=== PATIENT | male | born 1940 | race American Indian/Alaskan Native ===

== ENCOUNTER 2023-01-19 15:45 | Emergency (ER) | payer BC, MEDICARE ==
[2023-01-19 15:50] VITALS: BP 144/71; PULSE 101
[2023-01-19 16:13] LABS: BASOPHILS ABSOLUTE AUTO 0.02 10^3/uL (0.00-0.50); BASOPHILS PERCENT AUTO 0.2 % (0-1); EOSINOPHILS ABSOLUTE AUTO 0.16 10^3/uL (0.00-1.50); EOSINOPHILS PERCENT AUTO 1.3 % (0-6); HEMATOCRIT 39.1 % (42.0-52.0); HEMOGLOBIN 13.2 g/dL (14.0-18.0); IMMATURE GRAN ABSOLUTE AUTO 0.02 10^3/uL (0.00-0.49); IMMATURE GRAN PERCENT AUTO 0.2 % (0.0-4.9); LYMPHOCYTES PERCENT AUTO 11.6 % (24-44); MEAN CORPUSCULAR HEMOGLOBIN 28.3 pg (27.0-32.0); MEAN CORPUSCULAR HGB CONC 33.8 g/dL (32.0-36.0); MEAN CORPUSCULAR VOLUME 83.9 fL (83.0-97.0); MONOCYTES ABSOLUTE AUTO 0.49 10^3/uL (0.00-1.50); MONOCYTES PERCENT AUTO 4.1 % (0-10); NEUTROPHILS ABSOLUTE AUTO 9.96 x10^3/uL (1.80-8.00); NEUTROPHILS PERCENT AUTO 82.6 % (41-71); PLATELET COUNT,PLT 196 10^3/uL (150-400); RED BLOOD CELL COUNT 4.66 x10^6/uL (4.50-6.00); WHITE BLOOD CELL COUNT,WBC 12.1 10^3/uL (4.0-11.0)
[2023-01-19 16:27] LABS: ALBUMIN 3.8 g/dL (3.4-5.0); BILIRUBIN TOTAL 0.7 mg/dL (0.0-1.0); C-REACTIVE PROTEIN 1.71 mg/dL (<=0.30); CALCIUM 8.9 mg/dL (8.4-10.1); CREATININE 1.1 mg/dL (0.7-1.3); EST CRCL DRUG DOSING (CG) 62.27 mL/min; POTASSIUM,K 3.9 mEq/L (3.5-5.0); PROTEIN TOTAL,TP 7.8 g/dL (6.4-8.2)
[2023-01-19 16:54] LABS: CORONAVIRUS COVID-19 NAA POSITIVE (NEGATIVE); INFLUENZA A NAA NEGATIVE (NEGATIVE); INFLUENZA B NAA NEGATIVE (NEGATIVE)
[2023-01-19] MEDS ORDERED: Lactated Ringers 1,000 ML ONE (17:37)
[2023-01-19] MEDS ORDERED: Nirmatrelvir/Ritonavir 300 MG/100 MG Dose Pack PO SCH (17:45)
== END 2023-01-19 17:47 | disposition home or self-care (01) ==
LOC: CC.ED 15:45
DX: U07.1 COVID-19 (principal); I10 Essential (primary) hypertension; E11.9 Type 2 diabetes mellitus without complications; Z87.891 Personal history of nicotine dependence; Z79.899 Other long term (current) drug therapy
CPT/HCPCS: 0240U; 36415; 80053; 85025; 86140; 99283; A9270-GY

== ENCOUNTER 2023-03-12 18:39 | Emergency (ER) | payer BC, OTHER ==
[2023-03-12 19:08] VITALS: BP 147/73; PULSE 65
== END 2023-03-12 21:15 | disposition home or self-care (01) ==
LOC: CC.ED 18:39
DX: J06.9 Acute upper respiratory infection, unspecified (principal); I10 Essential (primary) hypertension; E11.9 Type 2 diabetes mellitus without complications; Z20.822 Contact with and (suspected) exposure to COVID-19; Z87.891 Personal history of nicotine dependence; Z79.899 Other long term (current) drug therapy
CPT/HCPCS: 87804; 99283; 99284; U0002